=== PATIENT | female | born 1990 | race Two or more races ===

== ENCOUNTER 2024-03-31 09:17 | Emergency (ER) | payer MEDICAID, OTHER ==
[~2024-03-31] VITALS: Ht 154.9 cm; Wt 80.0 kg
[2024-03-31] MEDS: SODIUM CHLORIDE 0.9% 500 ML IV ONE (10:00)
[2024-03-31] MEDS: ONDANSETRON ODT 4 MG TAB PO ONE (10:20)
[2024-03-31] MEDS: ACETAMINOPHEN 500 MG TAB or CAP PO ONE (10:20)
[2024-03-31] MEDS: PROMETHAZINE W/CODEINE 5 ML ORAL SYRUP PO ONE (10:21)
[2024-03-31 10:28] LABS: Urine Bacteria None Seen /hpf (None Seen)
[2024-03-31 10:37] LABS: Basophils # (auto) 0.1 10 ^3/uL (0-0.2); Basophils % (auto) 0.9 % (0.0-2.0); Eosinophils # (auto) 0 10 ^3/uL (0-0.8); Eosinophils % (auto) 0.1 % (0.0-7.0); Hematocrit 34.4 % (36.0-46.0); Lymphocytes # (auto) 0.2 10 ^3/uL (0.4-5.4); Lymphocytes % (auto) 2.4 % (10.0-50.0); Mean Corpuscular Hemoglobin 23.7 pg (28.0-32.0); Mean Corpuscular Volume 73.9 fL (80.0-100.0); Monocytes # (auto) 0.4 10 ^3/uL (0-1.3); Monocytes % (auto) 4.8 % (0.0-12.0); Neutrophils # (auto) 7.2 10 ^3/uL (1.6-8.6); Neutrophils % (auto) 91.8 % (37.0-80.0); Nucleated Red Blood Cells % 0.1 %; Platelet Count (auto) 327 10^3/uL (140-450); Red Blood Cells 4.66 10^6/uL (4.0-5.20); Red Cell Distribution Width 17.2 % (11.8-14.3); White Blood Cell 7.9 10^3/uL (4.4-10.8)
[2024-03-31 10:46] LABS: Urine Blood 1+ /uL (Negative); Urine Clarity Clear (Clear); Urine Color Colorless (Yellow); Urine Mucus FEW (None Seen); Urine Protein, UAD Negative (Negative); Urine Specific Gravity 1.009 (1.001-1.035); Urine Urobilinogen Normal (Negative); Urine WBC 1 /hpf (0 - 5); Urine pH 5.5 (5.0-9.0)
[2024-03-31] MEDS: DICYCLOMINE HCL (10MG/ML) 2 ML AMPULE IM ONE (10:46)
[2024-03-31 11:11] LABS: Chloride 104 mmol/L (98-107); Potassium 3.7 mmol/L (3.5-5.1)
[2024-03-31 11:12] LABS: Anion Gap 8 (5-15); Carbon Dioxide 23 mmol/L (20-31)
[2024-03-31 11:17] LABS: BUN/Creatinine Ratio 11.1 (10.0-20.0)
[2024-03-31 11:18] LABS: COVID19 ANTIGEN SOFIA FIA NEGATIVE (NEGATIVE); Rapid Influenza B Negative (Negative)
[2024-03-31 11:19] LABS: Rapid Influenza A Positive (Negative)
[2024-03-31 11:20] LABS: Blood Urea Nitrogen 8 mg/dL (9-23); Glucose 122 mg/dL (74-106); Sodium 135 mmol/L (136-145)
[2024-03-31 12:06] VITALS: BP 108/48; PULSE 97; RESP 16; TEMP 99.8; O2SAT 97
[2024-03-31] MEDS ORDERED: ZOFR4T PO (12:26)
[2024-03-31] MEDS ORDERED: IBUP-1455 PO (12:26)
[2024-03-31] MEDS ORDERED: PROM1SOL4 PO (12:26)
[2024-03-31] MEDS ORDERED: ACET500T58 PO (12:26)
--- NOTE | 2024-03-31 12:26 | ED.PDOC ---
History of Present Illness HPI Comments 33-year-old with a MHx presents with a chief complaint of URI symptoms x1 day. Complains of fevers, myalgia, malaise, nonproductive cough and intermittent nausea Denies persistent chest pain, shortness of breath, leg swelling Denies history of asthma nor any breathing conditions Denies history of pneumonia Denies recent international travel Chief Complaint: Flu like Time Seen by MD: 09:30 Reviewed Notes: Nurses Notes, Medications, Allergies Information Source: Patient All Other Systems: Reviewed and Negative (Per HPI) Physical Exam General Appearance: No Apparent Distress, Normal HEENT: Normal ENT Inspection, Pharynx Normal, TMs Normal Neck: Full Range of Motion, Non-Tender, Normal, Normal Inspection Respiratory: Chest Non-Tender, Lungs Clear, No Accessory Muscle Use, No Respiratory Distress, Normal Breath Sounds Cardiovascular: No Edema, No JVD, No Murmur, No Gallop, Normal Peripheral Pulses, Regular Rate/Rhythm Breast Exam: Deferred Gastrointestinal: No Organomegaly, Non Tender, No Pulsatile Mass, Normal Bowel Sounds, Soft Genitalia: Deferred Pelvic: Deferred Rectal: Deferred Extremities: No calf tenderness, Normal capillary refill, Normal inspection, Normal range of motion, Non-tender, No pedal edema Musculoskeletal : Apperance: Normal Neurologic: Alert, 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 Was a procedure done?: No Fever Differential Dx Differential Diagnosis: Influenza X-Ray, Labs, Meds, VS Vital Signs Date Time Temp Pulse Resp B/P (MAP) Pulse Ox O2 Delivery O2 Flow Rate FiO2 03/31/24 12:06 99.8 97 16 108/48 (68) 97 99.8 03/31/24 11:20 97.9 03/31/24 10:20 98.6 03/31/24 09:52 98.6 115 20 110/72 (85) 98 98.6 03/31/24 09:52 115 20 98 Room Air 03/31/24 09:24 98.7 118 20 107/71 (83) 100 03/31/24 09:24 98.7 118 20 107/71 (83) 100 98.7 Lab Test 03/31/24 10:14 124/24 10:09 03/31/24 10:02 Range/Units Urine Color Colorless Yellow Urine Clarity Clear Clear Urine pH 5.5 5.0-9.0 Urine Specific [place] 1.009 1.001-1.035 Urine Protein Negative Negative Urine Ketones Negative Negative Urine Blood 1+ H Negative /uL Urine Nitrite Negative Negative Urine Bilirubin Negative Negative Urine Urobilinogen Normal Negative mg/dL Urine Leukocyte Esterase Negative Negative /uL Urine RBC 1 0 - 4 /hpf Urine WBC 1 0 - 5 /hpf Urine Squamous Epithelial Cells Few <5 /hpf Urine Bacteria None seen None Seen /hpf Urine Mucus Few None Seen Urine Glucose Normal Normal mg/dL White Blood Count 7.9 4.4-10.8 10^3/uL Red Blood Count 4.66 4.0-5.20 10^6/uL Hemoglobin 11.0 L 12.2-16.2 g/dL Hematocrit 34.4 L 36.0-46.0 % Mean Corpuscular Volume 73.9 L 80.0-100.0 fL Mean Corpuscular Hemoglobin 23.7 L 28.0-32.0 pg Mean Corpuscular Hemoglobin Concent 32.0 32.0-36.0 g/dL Red Cell Distribution Width 17.2 H 11.8-14.3 % Platelet Count 327 140-450 10^3/uL Mean Platelet Volume 8.1 6.9-10.8 fL Neutrophils (%) (Auto) 91.8 H 37.0-80.0 % Lymphocytes (%) (Auto) 2.4 L 10.0-50.0 % Monocytes (%) (Auto) 4.8 0.0-12.0 % Eosinophils (%) (Auto) 0.1 0.0-7.0 % Basophils (%) (Auto) 0.9 0.0-2.0 % Neutrophils # (Auto) 7.2 1.6-8.6 10 ^3/uL Lymphocytes # (Auto) 0.2 L 0.4-5.4 10 ^3/uL Monocytes # (Auto) 0.4 0-1.3 10 ^3/uL Eosinophils # (Auto) 0 0-0.8 10 ^3/uL Basophils # (Auto) 0.1 0-0.2 10 ^3/uL Nucleated Red Blood Cells 0.1 % Sodium Level 135 L 136-145 mmol/L Potassium Level 3.7 3.5-5.1 mmol/L Chloride Level 104 98-107 mmol/L Carbon Dioxide Level 23 20-31 mmol/L Anion Gap 8 5-15 Blood Urea Nitrogen 8 L 9-23 mg/dL Creatinine 0.72 0.550-1.02 mg/dL Glomerular Filtration Rate Calc 115 >90 mL/min BUN/Creatinine Ratio 11.1 10.0-20.0 Serum Glucose 122 H 74-106 mg/dL Calcium Level 10.0 8.7-10.4 mg/dL Influenza Type A Antigen Positive Negative Influenza Type B Antigen Negative Negative SARS-CoV-2 Antigen (Rapid) Negative NEGATIVE Current Medications Medications (Trade) Dose Ordered Sig/Quin Route Start Time Stop Time Status Last Admin Sodium Chloride 500 ml @ 1,000 mls/hr Q30M ONCE IV 03/31/24 10:00 03/31/24 10:29 DC 03/31/24 10:00 Ondansetron HCl (Zofran Po) 4 mg PRN ONCE PO 03/31/24 10:00 03/31/24 10:02 DC 03/31/24 10:20 Acetaminophen (Tylenol Tablet) 1,000 mg ONCE ONCE PO 03/31/24 10:00 03/31/24 10:03 DC 03/31/24 10:20 Promethazine HCl/ Codeine (Phenergan W/ Codeine) 5 ml ONCE ONCE PO 03/31/24 10:00 03/31/24 10:03 DC 03/31/24 10:21 Dicyclomine HCl (Bentyl Injection) 10 mg ONCE ONCE IM 03/31/24 10:30 03/31/24 10:31 DC 03/31/24 10:46 X-Ray, Labs, Meds, VS Comment History and physical consistent w/ influenza Take medication as prescribed No concerns for pneumonia at this time. No risk factors. No indication for antibiotics Discussed that cough can linger up to 6 weeks after viral URI ED precautions if cough does not alleviate or if cough worsens Supportive care and return precautions discussed Counseled viral infection and explained that antibiotics would not be helpful in resolving the illness sooner. Recommended vitamin C, rest, handwashing, and symptomatic care. Expect 2-week course with possibly of cough lingering up to 6 weeks. Nonpharmacological remedies for fluids has been recommended as well On reevaluation, patient had symptomatic improvement. Patient is stable for discharge at this time. External notes reviewed. Test results and diagnostic imaging interpreted. All diagnostic findings, discharge care, education and instructions provided Follow-up with PCP in 2 to 3 days Patient verbalized understanding and agreed to treatment plan Vital signs stable, afebrile, no acute distress noted Patient ambulatory with strong steady gait Advised to return precautions for any new or worsening symptoms, return to ER immediately for re-evaluation Patient is aware that the purpose of this visit was for an acute medical emergency requiring emergent stabilization. Chronic conditions, including malignancies have not been ruled out. Patient is instructed to follow up with PCP as directed and discharge instructions for continued care and workup. If nesha ble to arrange follow-up, patient is to return to the emergency department for reassessment. Patient (parent or legal guardian if applicable) was given verbal and written discharge instructions and acknowledges understanding. Time of 1ST Reevaluation: 12:24 Reevaluation 1ST: Improved Patient Education/Counseling: Diagnosis, Treatment Family Education/Counseling: Diagnosis, Treatment Departure 1 Departure Time of Disposition: 12:24 Impression: Primary Impression: Influenza A Disposition: 01 HOME / SELF CARE / HOMELESS Condition: Stable e-Prescriptions Promethazine-Dm (Promethazine Dm 6.25-15 mg/5Ml) 1 Emilia Emilia 5 ML PO TIDPRN PRN for 10 Days, #150 ML 0 Refills Prov: SYD VELOZ NP 03/31/24 Ondansetron Odt 4MG Tab (ZOFRAN PO) 4 Mg Tb 4 MG PO Q8HP PRN for 2 Days, #6 TAB 0 Refills ODT TAB-DISSOLVE IN MOUTH, THEN SWALLOW Prov: SYD VELOZ NP 03/31/24 Ibuprofen Micronized (Ibuprofen) 800 Mg Tab 800 MG PO TID for 10 Days, #30 TAB 0 Refills Prov: SYD VELOZ NP 03/31/24 Acetaminophen (Acetaminophen) 500 Mg Tab 500 MG PO Q6HP PRN for 10 Days, #40 TAB 0 Refills Prov: SYD VELOZ NP 03/31/24 Discharged With: Spouse Critical Care Note Critical Care Time?: No Stability Stability form required: No Heart Score Heart Score: Heart Score Response (Comments) Value History N/A 0 EKG N/A 0 Age N/A 0 Risk Factors N/A 0 Troponin N/A 0 Total 0 SYD VELOZ NP Mar 31, 2024 12:26
== END 2024-03-31 12:44 | disposition home or self-care (01) ==
LOC: ER 09:17
DX: J10.1 Influenza due to other identified influenza virus with other respiratory manifestations (principal); Z20.822 Contact with and (suspected) exposure to COVID-19
CPT/HCPCS: 36415; 80048; 81001; 85025; 87426; 87804; 96360; 96372; 99283; J0500; J7040; Q0162